=== PATIENT | female | born 1985 | race Caucasian/White ===

== ENCOUNTER → 2016-09-12 | Outpatient (CLI) | payer BC ==
[~2016-09-12] MED LIST: FERROUS SULFAT325 M2 PO; IBUPROFEN400 MG PO; NOMEDS *; PRENATAL PLUS1 TA1 PO; TYLENOL325 MG PO
[2016-09-12 16:08] LABS: LYMPH # 3.5 K/mm3 (0.7-4.5); LYMPH % 37.7 % (10-50.0)
[2016-09-12 16:10] LABS: HEMOGLOBIN 15.3 g/dL (12.2-16.2)
[2016-09-12 18:55] LABS: BUN 8 mg/dL (7-18)
[2016-09-12 19:53] LABS: GFR (ESTIMATED) 97 ML/MIN (59-)
[2016-09-14 08:46] LABS: Vitamin D, 25-Hydroxy 17.5 ng/mL (30.0-100.0)
== END ==
LOC: LAB 15:30
PROVIDERS: Internal Medicine Adolescent Medicine
DX: R53.81 Other malaise (principal); R53.83 Other fatigue

== ENCOUNTER → 2017-03-13 | Outpatient (CLI) | payer BC ==
--- NOTE | 2017-03-13 16:28 | RADIOLOGY REPORT PS360 ---
US TRANSVAGINAL PREG HISTORY: DATES ORDERING PHYSICIAN: Samm Bustos MD PATIENT AGE: 32 years COMPARISON: None FINDINGS: An intrauterine gestational sac is present with a pole with a crown-rump length of 1.94cm correlating to gestational age of 8 weeks 4 days. heart tones are present with an FHR of 170 bpm's. Yolk sac is noted. The amnion and chorion have not yet fused. Adnexa: There is a 1.7 cm right corpus luteum cyst. Left ovary has an unremarkable appearance.. IMPRESSION: Live intrauterine gestation at 8 weeks 4 days as described above.
[2017-03-13 18:45] LABS: ABO BLOOD TYPE A; RH BLOOD TYPE NEGATIVE
[2017-03-13 21:46] LABS: HEMOGLOBIN 14.6 g/dL (12.2-16.2); LYMPH # 2.8 K/mm3 (0.7-4.5); LYMPH % 16.5 % (10-50.0)
[2017-03-13 23:06] LABS: NEUTROPHILS 70 % (42-76)
[2017-03-15 08:50] LABS: HIV Screen 4th Generation wRfx Non Reactive (Non Reactive); Rapid Plasma Reagin, Quant Non Reactive (NonRea<1:1); Rubella Antibodies, IgG 7.49 index (Immune >0.99)
[2017-03-15 09:38] LABS: HBsAg Screen Negative (Negative)
== END ==
LOC: RAD 14:48 → LAB 14:48 → RAD 15:00
PROVIDERS: Nurse Practitioner Obstetrics & Gynecology
DX: O26.841 Uterine size-date discrepancy, first trimester (principal); Z34.80 Encounter for supervision of other normal pregnancy, unspecified trimester
CPT/HCPCS: G0432